=== PATIENT | female | born 1990 ===

== ENCOUNTER 2018-02-26 20:47 | Emergency (ER) | payer MEDICAID ==
[2018-02-26 21:14] VITALS: RESP 18; O2SAT 100
[2018-02-26] MEDS ORDERED: Dextrose 5%/0.45% NS 1,000 ML IV SCH (22:30)
--- NOTE | 2018-02-26 22:33 | ED PDOC ---
HPI: Abdomen Time Seen by Provider: 02/26/18 22:11 Chief Complaint (Nursing): Abdominal Pain Chief Complaint (Provider): Abdominal pain History Per: Patient History/Exam Limitations: no limitations Current Symptoms Are (Timing): Still Present Location Of Pain/Discomfort: Epigastric Quality Of Discomfort: Burning Associated Symptoms: Nausea, Vomiting, Diarrhea Additional History Per: Patient Additional Complaint(s): 27yo female, and currently 11 weeks , comes to ER complaining of 3 days of nausea, vomiting, diarrhea and generalized epigastric abdominal discomfort. She describes the pain as a burning sensation and states it radiates to her chest. Patient states she had 5 episodes of non-bilious, non- bloody vomiting today as well as 5 episodes of watery diarrhea. She is currently taking pre-jalen vitamins and denies taking any other medications. Otherwise, patient denies any fever, chills, shortness of breath, vaginal bleeding or discharge. PMD: Dr. Wheeler : 3 Para: 1 Past Medical History Reviewed: Historical Data, Nursing Documentation, Vital Signs Vital Signs: Last Vital Signs Temp 98.3 F 02/26/18 21:08 Pulse 84 02/26/18 21:08 Resp 18 02/26/18 21:08 BP 96/62 L 02/26/18 21:08 Pulse Ox 100 02/26/18 22:37 - Medical History PMH: No Chronic Diseases - Surgical History Surgical History: - Family History Family History: States: No Known Family Hx - Home Medications Home Medications: Ambulatory Orders Medication Instructions Recorded Amoxicillin/Potassium Clav 1 tab PO TID #30 tab 04/22/14 [Augmentin 500 mg-125 mg] Naproxen [Naprosyn] 500 mg PO Q12H #20 tab 04/22/14 Tobramycin 0.3% [Tobramycin 5 Ml] 1 drop OP TID #0 bottle 04/22/14 Doxylamine/Pyridoxine HCl (B6) 1 each PO DAILY #20 tablet. 02/27/18 [Blanca Taveras 10-10 mg Tablet] Famotidine [Pepcid] 20 mg PO BID #20 tab 02/27/18 - Allergies Allergies/Adverse Reactions: Allergies Allergy/AdvReac Type Severity Reaction Status Date / Time No Known Allergies Allergy Verified 02/26/18 21:08 Review of Systems ROS Statement: Except As Marked, All Systems Reviewed And Found Negative Constitutional: Negative for: Fever, Chills Cardiovascular: Negative for: Chest Pain Gastrointestinal: Positive for: Nausea, Vomiting, Abdominal Pain, Diarrhea Genitourinary Female: Negative for: Vaginal Discharge, Vaginal Bleeding, Pelvic Pain Physical Exam - Reviewed Nursing Documentation Reviewed: Yes Vital Signs Reviewed: Yes - Physical Exam Appears: Positive for: Non-toxic, No Acute Distress Head Exam: Positive for: ATRAUMATIC, NORMAL INSPECTION, NORMOCEPHALIC Skin: Positive for: Normal Color, Warm, DRY Eye Exam: Positive for: EOMI, Normal appearance, PERRL Neck: Positive for: Normal, Painless ROM Cardiovascular/Chest: Positive for: Regular Rate, Rhythm Respiratory: Positive for: CNT, Normal Breath Sounds Gastrointestinal/Abdominal: Positive for: Soft, Tenderness (epigastric tenderness to palpation). Negative for: Guarding, Rebound Back: Positive for: Normal Inspection. Negative for: L CVA Tenderness, R CVA Tenderness Extremity: Positive for: Normal ROM. Negative for: Pedal Edema, Deformity Neurologic/Psych: Positive for: Alert, Oriented. Negative for: Motor/Sensory Deficits, Facial Droop - Laboratory Results Result Diagrams: 02/26/18 22:30 02/26/18 22:30 - ECG O2 Sat by Pulse Oximetry: 100 (RA) Pulse Ox Interpretation: Normal Medical Decision Making Medical Decision Making: Assessment: 27yo female with epigastric abdominal pain, nausea, vomiting and diarrhea. Patient is well appearing but with mild hypotension which maybe related to the small size of patient. Differential: Gastroenteritis vs. hyperemesis gravidum Plan: -- Labs -- US 1st Trimester -- IV Fluids -- Pepcid 20mg IVP -- Zofran 4mg IVP 300 U/S shows normal kaufman at 12 weeks Patient passed PO challenge and states she's feeling much better Patient advised to followup with OB, return precautions given Very well appearing upon discharge Scribe Attestation: Documented by Kirsten Fraire, acting as a scribe for Samson Coats MD. Provider Scribe Attestation: All medical record entries made by the Scribe were at my direction and personally dictated by me. I have reviewed the chart and agree that the record accurately reflects my personal performance of the history, physical exam, medical decision making, and the department course for this patient. I have also personally directed, reviewed, and agree with the discharge instructions and disposition. Disposition - Clinical Impression Clinical Impression: Gastritis, Gastroenteritis - Disposition Referrals: [facility] [Outside] Disposition: Routine/Home Disposition Time: 03:00 Condition: STABLE Prescriptions: Doxylamine/Pyridoxine HCl (B6) [Blanca Taveras 10-10 mg Tablet] 1 each PO DAILY # 20 tablet. Famotidine [Pepcid] 20 mg PO BID #20 tab Instructions: Gastritis (DC), Gastroenteritis (ED) Forms: [facility] ([place])
[2018-02-26 22:44] LABS: BASO % 0.4 % (0.0-2.0); EOS # 0.2 K/uL (0.0-0.7); EOS % 2.6 % (0.0-4.0); HEMOGLOBIN 12.5 g/dL (12.0-16.0); LYMPH # 2.4 K/uL (1.0-4.3); LYMPH % 31.9 % (20.0-40.0); MEAN CELL VOLUME 91.5 fl (81.0-99.0); MEAN CORPUSCULAR HEMOGLOBIN 30.8 pg (27.0-31.0); MEAN CORPUSCULAR HGB CONC 33.7 g/dL (33.0-37.0); MONO # 0.6 K/uL (0.0-0.8); MONO % 7.8 % (0.0-10.0); NEUT # 4.3 K/uL (1.8-7.0); NEUT % 57.3 % (50.0-75.0); NRBC % 0.1 % (0.0-0.0); RBC 4.07 Mil/uL (3.80-5.20); RED CELL DISTRIBUTION WIDTH 13.2 % (11.5-14.5); WHITE BLOOD COUNT 7.4 K/uL (4.8-10.8)
[2018-02-26 22:56] LABS: BLOOD UREA NITROGEN 6 mg/dl (7-17); CALCIUM 9.4 mg/dL (8.4-10.2); GFR NON-AFRICAN AMERICAN > 60
[2018-02-27 05:45] VITALS: BP 110/70; PULSE 80; TEMP 98
--- NOTE | 2018-02-27 12:34 | US ---
Date of service: 02/27/2018 PROCEDURE: First trimester ultrasound HISTORY: Eleven weeks presenting with abdominal pain. COMPARISON: None available. TECHNIQUE: Standard protocol for this study/examination. FINDINGS: LMP: 12/08/2017 Prior examinations from the current : None TECHNIQUE: Real-time 2D imaging, duplex and color Doppler. FINDINGS: Cardiac activity: Present Rate: 172 BPM Measurements: [place] rump length: 5.48 cm Gestational age based on CRL 12 weeks 1 day Gestational age 11 weeks 4 days based on gestational sac measurement 5.55 cm Gestational age derived from LMP: Level weeks 3 days MARY based on LMP: 01/14/2019. MARY based on biometry: September 12, 2018. Gestational concordance documented Yolk sac not identified Cervix: No Cervical abnormalities: Negative examination for cervical dilatation or effacement. Closed cervix measuring 4.46 cm Subchorionic hemorrhage: None UTERUS: 7.1 x 9.3 x 10.7 cm. ADNEXA: Right: 1.4 x 1.5 x 2.5 cm. Normal Doppler arterial waveform documented. Left: 3.5 x 1.8 x 2.8 cm. Simple cysts 1.5 x 1.2 cm Normal Doppler arterial waveform documented Fluid in the cul-de-sac: None IMPRESSION: Eleven weeks 6 days live intrauterine gestation. Gestational concordance documented. Concordant results (preliminary interpretation) provided by [facility]. Procedure Completed: 01:01. Preliminary ([facility]Rad) Report: Dictated and Authenticated: 02:34. Final Interpretation: 12:32. February 27, 2018.
== END 2018-02-27 01:05 | disposition home or self-care (01) ==
LOC: H.ER 20:47
DX: K29.70 Gastritis, unspecified, without bleeding (principal); K52.9 Noninfective gastroenteritis and colitis, unspecified; O99.611 Diseases of the digestive system complicating pregnancy, first trimester; Z3A.11 11 weeks gestation of pregnancy
CPT/HCPCS: 76801; 80048; 81025; 84702; 85025; 96374; 96375; 99284; J2405; J7042

== ENCOUNTER 2018-08-01 11:55 | Emergency (ER) | payer MEDICAID ==
[2018-08-01 14:35] VITALS: BMI 24.5
[2018-08-01 14:48] LABS: BASO % 0.3 % (0.0-2.0); EOS % 0.6 % (0.0-4.0); LYMPH # 1.3 K/uL (1.0-4.3); LYMPH % 16.7 % (20.0-40.0); MEAN CELL VOLUME 83.7 fl (81.0-99.0); MEAN CORPUSCULAR HGB CONC 33.5 g/dL (33.0-37.0); MEAN PLATELET VOLUME 9.2 fl (7.2-11.7); MONO # 0.5 K/uL (0.0-0.8); MONO % 5.6 % (0.0-10.0); NEUT # 6.2 K/uL (1.8-7.0); NEUT % 76.8 % (50.0-75.0); NRBC % 0.3 % (0.0-0.0); RBC 3.22 Mil/uL (3.80-5.20); RED CELL DISTRIBUTION WIDTH 13.9 % (11.5-14.5); WHITE BLOOD COUNT 8.1 K/uL (4.8-10.8)
[2018-08-01 15:00] LABS: ALB/GLOB RATIO 1.1 (1.0-2.1); ALBUMIN 3.6 g/dL (3.5-5.0); ALT/SGPT 22 U/L (9-52); AST/SGOT 21 U/L (14-36); BLOOD UREA NITROGEN 6 mg/dl (7-17); CALCIUM 8.8 mg/dL (8.4-10.2); GFR NON-AFRICAN AMERICAN > 60
[2018-08-01 23:08] VITALS: BP 107/88; PULSE 98
--- NOTE | 2018-08-02 13:39 | OBHP ---
Datetime: 08/01/2018 14:36 IP Adm Impression: , intrauterine IP Admit Plan: Observation/Evaluation Admit Comment, IP Provider: 28 yo with IUP at 33+4 weeks EGA based on MARY presents feeling d latrice. Patient reports it started yesterday and she had a dizzy spell in which she lost balance and fa inted near her [employer] members. She reports after having some water she felt better. Denies vaginal bl eeding, loss of fluid per the vagina and she endorses good movement. Denies fevers, sick contac ts, congestion, headaches, chest pain, SOB, vision changes, Nausea, vomiting, and dysuria. OBGYN: Dr. Casanova at [facility], [place], [facility]- 1 C/S in 2011 for recurrent D-cels PMH: denies OBHx: - no complications; 1 Miscarriage 2 years ago Meds: PNV Labs: not available Social: denies Family Hx: denies Allergies: denies Meds: PNV Surgical Hx: C/S in 2011 ROS: all other systems reviewed and negative unless noted in HPI PE: comfortable, in no acute distress Vitals: 107/88; HR: 98; Temp: 97.4 Resp: no resp distress CV: S1, S2, RRR Abd: IUP, no tenderness to pain; +BS Ext: no edema SVE: posterior- closed A+P: 28 yo with IUP at 33+4 weeks EGA based on MARY presents feeling dizzy here for observa tion - Patient afebrile at this time and denies any complaints currently. -Continuous EFM: reassuring Category I - continue TOCO and EFM - CBC with differential and CMP REASSESSED - Patient's H/H reported 03/11.9 - Patient stable for discharge at this time and to follow up with Primary on Friday. - Given an Rx for Ferrous sulfate 325mg po BID Case discussed with Dr Patel -Morenita Mcbride PGY1 Addendum: I saw and examined patient at presentation and follow-up. heart tracing category 1. Patien t's labs consistent with mild anemia. Patient given prescription for p.o. ferrous sulfate. Discusse d plan with patient and all patient questions answered. Patient will follow-up with clinic this week . [place] Pelvic Type - PN: Adequate Extremities - PN: Normal Abdomen - PN: Normal Back - PN: Normal Breast - PN: Not Done Lungs - PN: Normal Heart - PN: Normal Thyroid - PN: Normal Neurologic - PN: Normal HEENT - PN: Normal General - PN: Normal FHR - Baseline A Provider: 150 Vital Signs Provider: Reviewed; Within Normal Limits IP Chief Complaint: Maternal discomfort; Other NICHD Variability Prov Fetus A: Moderate 6-25bpm NICHD Accel Fetus A IP Provider: [id number] FHR Category Provider Fetus A: Category I NICHD Decel Fetus A IP Provider: None Dilatation, Provider: closed Genitourinary Exam: Normal DTRs - PN: Normal
== END 2018-08-01 16:20 | disposition home or self-care (01) ==
LOC: H.EROB2 11:55 → H.L&D 12:22 → H.EROB2 16:20
DX: O26.93 Pregnancy related conditions, unspecified, third trimester (principal); R42 Dizziness and giddiness; Z3A.33 33 weeks gestation of pregnancy

== ENCOUNTER 2018-09-09 06:01 | Inpatient (IN) | payer MEDICAID ==
[2018-09-09 06:54] VITALS: BMI 25.2
[2018-09-09] MEDS: Lactated Ringer's 1,000 ML IV ONE ×2 (07:00→08:00)
[2018-09-09] MEDS ORDERED: Oxytocin 30 UNIT in NS 500 ml 30 UNITS/500 ML BAG IV ONE (07:01)
[2018-09-09] MEDS ORDERED: OXYTOCIN/0.9 % NS 20 UNIT/1,000 ML BAG IV ONE (07:01)
[2018-09-09] MEDS ORDERED: Lactated Ringer's 1,000 ML IV ONE (07:02)
[2018-09-09 08:09] LABS: BASO % 0.1 % (0.0-2.0); EOS # 0.1 K/uL (0.0-0.7); EOS % 1.2 % (0.0-4.0); HEMOGLOBIN 10.8 g/dL (12.0-16.0); LYMPH # 1.5 K/uL (1.0-4.3); LYMPH % 27.8 % (20.0-40.0); MEAN CELL VOLUME 84.9 fl (81.0-99.0); MEAN CORPUSCULAR HEMOGLOBIN 27.9 pg (27.0-31.0); MEAN CORPUSCULAR HGB CONC 32.9 g/dL (33.0-37.0); MEAN PLATELET VOLUME 10.1 fl (7.2-11.7); MONO # 0.5 K/uL (0.0-0.8); MONO % 9.3 % (0.0-10.0); NEUT # 3.4 K/uL (1.8-7.0); NEUT % 61.6 % (50.0-75.0); NRBC % 0.1 % (0.0-0.0); RBC 3.86 Mil/uL (3.80-5.20); RED CELL DISTRIBUTION WIDTH 19.2 % (11.5-14.5); WHITE BLOOD COUNT 5.5 K/uL (4.8-10.8)
[2018-09-09 08:16] VITALS: O2SAT 99
[2018-09-09] MEDS ORDERED: ceFAZolin 2 GM in Sodium Chloride 0.9% 100 ML IVPB ONE (08:16)
[2018-09-09] MEDS ORDERED: Morphine 5 mg/10 ml preservative-free Inj(Duramorph) ONE (10:08)
[2018-09-09] MEDS ORDERED: Bupivacaine 0.25% 300 ML in Sodium Chloride 0.9% 300 ML IS ONE (10:19)
[2018-09-09] MEDS ORDERED: Oxycodone/Acetaminophen 5/325 mg Tab PO PRN ×2 (11:53)
[2018-09-09] MEDS: Simethicone 80 mg Chewtab PO SCH ×2 (16:15→22:17)
[2018-09-09] MEDS ORDERED: DiphenhydrAMINE 50 mg/ml Inj IVP PRN (18:52)
[2018-09-10] MEDS: Simethicone 80 mg Chewtab PO SCH ×4 (04:50→22:11)
[2018-09-10 06:43] LABS: HEMOGLOBIN 10.7 g/dL (12.0-16.0); MEAN CELL VOLUME 85.4 fl (81.0-99.0); MEAN CORPUSCULAR HEMOGLOBIN 27.5 pg (27.0-31.0); MEAN CORPUSCULAR HGB CONC 32.2 g/dL (33.0-37.0); RBC 3.89 Mil/uL (3.80-5.20); RED CELL DISTRIBUTION WIDTH 19.8 % (11.5-14.5); WHITE BLOOD COUNT 11.8 K/uL (4.8-10.8)
--- NOTE | 2018-09-10 08:02 | OP ---
PROCEDURE DATE: 09/09/2018 PREOPERATIVE DIAGNOSES: Intrauterine at 39 weeks, history of previous delivery. The patient opted for repeat section, declined trial of labor. POSTOPERATIVE DIAGNOSES: Intrauterine at 39 weeks, history of previous delivery. The patient opted for repeat section, declined trial of labor. OPERATION PERFORMED: Repeat low flap transverse section via Pfannenstiel skin incision. SURGEON: Cassandra Elliott MD SHEET METAL WORKER HELPER: Dr. Lindsey Storey. She was helpful in creating exposure, obtaining hemostasis, delivery of the baby and closure of the patient. The procedure would not have been possible without her assistance. ESTIMATED BLOOD LOSS: 800 mL. URINE OUTPUT: Ambriz catheter put out approximately 100 mL of clear urine. INTRAVENOUS FLUID INTAKE: The patient received 1900 mL of D5 LR intraoperatively. OPERATIVE FINDINGS: Baby boy, vertex presentation, Apgars 9 and 9, weighing 3160 g. Normal uterus, tubes, and ovaries were identified. DESCRIPTION OF PROCEDURE: After informed consent was obtained, the patient was taken to the operating room, where she was given spinal anesthesia. She was prepped and draped in the normal sterile fashion with a leftward tilt. A Pfannenstiel skin incision was then made with a scalpel and carried down to the underlying layer of fascia. The fascia was nicked in the midline. The fascial incision was then extended laterally with curved Booth scissors. The superior aspect of the fascial incision was then grasped with Flaco clamps, elevated up, and the rectus muscles were dissected off using both sharp and blunt dissection. Attention was then turned to the inferior aspect of the fascial incision, which in a similar fashion, was grasped with Flaco clamps, elevated up, and the rectus muscles were dissected off using both sharp and blunt dissection. The rectus muscles were then in the midline. The peritoneum was identified and entered sharply with the Metzenbaum scissors. The peritoneal incision was then extended superiorly and inferiorly with good visualization of the bladder and the bladder blade was inserted. The vesicouterine peritoneum was identified and entered sharply with the Metzenbaum scissors. The incision was then extended laterally. The bladder flap was created digitally. The bladder blade was then re-adjusted and a low transverse incision was made with the scalpel. The incision was extended laterally with the bandage scissors. The 's head was then delivered atraumatically. The nose and mouth were suctioned with DeLee suction trap. The cord was clamped and cut. The was handed off to the awaiting pediatricians. The placenta was removed manually. The uterus was exteriorized and cleared of all clots and debris. The uterine incision was repaired with 0 Vicryl in a running locked fashion. The second layer of the same suture was used to obtain excellent hemostasis. The uterus was returned to the abdomen. The abdomen was then copiously irrigated. The irrigant was removed with suction device. The gutters were cleared of all clots and debris. The uterine incision was reexamined and noted to be hemostatic. At that point, the abdomen was tented upward, On-Q catheter was inserted approximately 4 cm superior to the right anterior iliac crest. The catheter was through and placed above the uterine incision. The peritoneum was then closed with 2-0 Vicryl in a running fashion. The muscle was reapproximated with 0 Vicryl in an interrupted fashion. At that point, the abdomen was then tented up and additional On-Q catheter was inserted into the abdomen and placed on top of the rectus muscles. The fascia was then closed with 0 Vicryl in a running fashion and the skin was closed with 3-0 on a Tom needle. All sponge, lap, needle, and instrument counts were correct x2, and the patient was taken to the recovery room in awake and stable condition. Cassandra Elliott MD
[2018-09-10] MEDS: Multivitamin With Minerals Tab PO SCH (08:27)
[2018-09-10 08:44] LABS: RUBELLA AB (IGG) 8.76 index
[2018-09-11] MEDS: Simethicone 80 mg Chewtab PO SCH ×4 (04:00→21:39)
[2018-09-11] MEDS: Multivitamin With Minerals Tab PO SCH (08:07)
--- NOTE | 2018-09-11 09:30 | OBPPN ---
Datetime: 09/11/2018 06:10 PP Pain Prov: Within normal limits PP Nausea Prov: Denies PP Flatus Prov: Yes PP BM Prov: Yes PP Heart Prov: Normal PP Lungs Prov: Normal PP Abdomen/Uterus Prov: Normal PP Lochia Prov: Normal PP Extremities Prov: Normal PP C/S Incision Prov: Normal PP Progress Prov: Normal PP Comments Phys Exam Prov: Gen: NAD HEENT: NCAT Cardio: + S1S2, RRR Lungs: CTA B/L, no wheezes, rales or rhonchi Abd: soft, incision-c/d/i, appropriate tenderness to palpation, + BS heard throughout, UB firm bel ow level of umbilicus, 2 catheters inserted from ONQ ball- c/d/I, slight bloody drainage from R cosmo ter Ext: No edema, calves non tender H _ H: aCBC: 10.8/32.8, pCBC: 10.7/33.2 PP Impression Prov: Normal progression PP Plan Prov: Continue present management PP Progress Note Prov: Pt is a 28 yo POD 2 s/p on 09/09/18 with delivery of male in andrei @39.1 wks. Pt is using ONQ ball for pain control, pain controlled only needed ibuprofen added. T olerating oral intake. Lochia less than menses. Patient is breast and bottle feeding. + Flatus, + BM. Denies fevers, chills, dizziness, chest pain, SOB, nausea, vomiting, diarrhea, constipation or dysur ia. VS: WNL Gen: NAD HEENT: NCAT Cardio: + S1S2, RRR Lungs: CTA B/L, no wheezes, rales or rhonchi Abd: soft, incision-c/d/i, appropriate tenderness to palpation, + BS heard throughout, UB firm bel ow level of umbilicus, catheters inserted from ONQ ball- c/d/I, slight bloody drainage from R cathete r Ext: No edema, calves non tender H _ H: aCBC: 10.8/32.8, pCBC: 10.7/33.2 Assessment: Pt is a 28 yo POD 2 s/p on 09/09/18 with delivery of male @39.1 wks. Clin ically stable Plan: -ONQ pain relief ball being used, pain controlled with additional ibuprofen - and ambulation encouraged. -c/w Ibuprofen 600mg 1 tab Q 6h PRN mild pain -c/w Tylenol 650mg PO Q6 PRN -c/w Percocet 5/325mg 1-2 tab Q4h PRN severe pain -c/w Simethicone 80mg PO Q6 -Pt has apt to F/U with [facility] in 1 week for would check and will call for 4-6 weeks for post-par lelia visit, will call for visit in 2-3 days. -Anticipate discharge 09/12/18 Case reviewed and discussed with attending -Aysha Adam PGY1 Ob Ahospitalist note. Pt seen and agree with PGY 1 note. BRADLEY MENARD PP Procedures: None Vital Signs Provider PP: Reviewed; Within Normal Limits
[2018-09-12] MEDS: Simethicone 80 mg Chewtab PO SCH ×2 (04:16→10:20)
[2018-09-12] MEDS: Multivitamin With Minerals Tab PO SCH (08:12)
--- NOTE | 2018-09-12 08:21 | OBPPN ---
Datetime: 09/12/2018 05:54 PP Pain Prov: Within normal limits PP Nausea Prov: Denies PP Flatus Prov: Yes PP BM Prov: Yes PP Heart Prov: Normal PP Lungs Prov: Normal PP Abdomen/Uterus Prov: Normal PP Lochia Prov: Normal PP Extremities Prov: Normal PP C/S Incision Prov: Normal PP Progress Prov: Normal PP Comments Phys Exam Prov: Gen: NAD HEENT: NCAT Cardio: + S1S2, RRR Lungs: CTA B/L, no wheezes, rales or rhonchi Abd: soft, incision-c/d/i, appropriate tenderness to palpation, + BS heard throughout, fundus firm below level of UB, 2 band aids placed where ONQ catheters were- c/d/i Ext: No edema, calves non tender H _ H: aCBC: 10.8/32.8, pCBC: 10.7/33.2 PP Impression Prov: Normal progression PP Plan Prov: Discharge PP Progress Note Prov: Pt is a 28 yo POD 3 s/p on 09/09/18 with delivery of male in andrei @39.1 wks. Pt was using ONQ ball and ibuprofen for pain control, ONQ removed on 09/11/18 tolerate d well. Tolerating oral intake. Lochia less than menses. Patient is breast and bottle feeding. + Fla tus, + BM. Denies fevers, chills, dizziness, chest pain, SOB, nausea, vomiting, diarrhea, constipatio n or dysuria. VS: WNL Gen: NAD HEENT: NCAT Cardio: + S1S2, RRR Lungs: CTA B/L, no wheezes, rales or rhonchi Abd: soft, incision-c/d/i, appropriate tenderness to palpation, + BS heard throughout, fundus firm below level of UB, 2 band aids placed where ONQ catheters were- c/d/i Ext: No edema, calves non tender H _ H: aCBC: 10.8/32.8, pCBC: 10.7/33.2 Assessment: Pt is a 28 yo POD 3 s/p on 09/09/18 with delivery of male infant @39.1 wks. Clini [place] stable Plan: -D/C home today -ONQ pain relief ball removed 09/11/18 @12am, tolerated well - and ambulation encouraged. -Script written for Ibuprofen 600mg 1 tab Q 6h PRN mild pain #30 No refills -Script written for Percocet 5/325mg 2 tab Q4h PRN severe pain #20 No refills -Continue vitamin -If fevers, pain not controlled with medications, increased vaginal bleeding come back to ED -Avoid stairs, heavy lifting, nothing per vagina/intercourse for 4 weeks -Pt has apt to F/U with [facility] in 1 week for would check and will call for 4-6 weeks for post-par lelia visit, will call Dr. Rios for visit in 2-3 days. Case reviewed and discussed with attending -Aysha Adam PGY1 OB Hospitalist on-call. Agree with note BRADLEY MENARD PP Procedures: None Vital Signs Provider PP: Reviewed; Within Normal Limits
--- NOTE | 2018-09-12 08:21 | OBDCSUM ---
Datetime: 09/12/2018 06:00 Discharged to, Provider: Home Follow up at, Provider: [facility] Disch Instr Activity: Normal activity Disch Instr Diet: Regular Discharge Instructions, Provider: Routine instructions given Discharge Diagnosis, Provider: Term Delivered Discharge Time: 09/12/2018 06:00 Follow up in weeks, Provider: 1 wk wound check, 4-6 wks post , 2-3 day visit Disch Referrals: None Contraception discussed, Prov: Yes Disch Activity Restrictions: No lifting; Minimize stair-climbing; No sexual activity; Nothing in vag brennan - [place], tampons, douche Discharge Comment, Provider: Ob Discharge Summary DOA: 09/09/18 EGA: 39.1 wks. Diagnosis: C section, Delivered term M risk factors: None Summary of : L_D summary: DOD: 09/09/18 @10:43 C section EBL 800cc NB: M : [birth year] Weight: 3160g summary: No complications during period, used ONQ pain ball for pain relief, as well as Ibuprofe n PRN- well controlled, removed ONQ on 09/11/18 @12am Lochia <menses. CBC : 10.7/33.2 Blood type: A+ DISCHARGE DATA D/C DATE: 09/12/18 TIME: 8:00 AM DISCHARGE INSTRUCTIONS: -ONQ pain relief ball removed 09/11/18 @12am, tolerated well - and ambulation encouraged. -Script written for Ibuprofen 600mg 1 tab Q 6h PRN mild pain #30 No refills -Script written for Percocet 5/325mg 2 tab Q4h PRN severe pain #20 No refills -Continue vitamin -If fevers, pain not controlled with medications, increased vaginal bleeding come back to ED -Avoid stairs, heavy lifting, nothing per vagina/intercourse for 4 weeks -Pt has apt to F/U with [facility] in 1 week for would check and will call for 4-6 weeks for post-par lelia visit, will call Dr. Vila for visit in 2-3 days. Case reviewed and discussed with attending -Aysha Adam PGY1 Contraception after Delivery: Control Pill/Patch
[2018-09-12 22:32] VITALS: BP 118/60; PULSE 70; RESP 20; TEMP 98.4
== END 2018-09-12 12:18 | disposition home or self-care (01) | DRG 371 ==
LOC: H.L&D 06:01 → H.OB/GYN 14:30
PROVIDERS: ADMIT Obstetrics & Gynecology; ATTEND Obstetrics & Gynecology Gynecology
PROC: 10D00Z1 Extraction of Products of Conception, Low, Open Approach (ICD-10-PCS; principal; 2018-09-09)
PROC: 4A1HXCZ Monitoring of Products of Conception, Cardiac Rate, External Approach (ICD-10-PCS; 2018-09-09)
DX: O34.211 Maternal care for low transverse scar from previous cesarean delivery (principal); N85.8 Other specified noninflammatory disorders of uterus; Z3A.39 39 weeks gestation of pregnancy; Z37.0 Single live birth